=== PATIENT | female | born 1985 | race African-American/Black ===

== ENCOUNTER 2021-07-13 21:02 | Emergency (ER) | payer OTHER ==
[~2021-07-13] VITALS: Ht 154.9 cm; Wt 90.7 kg
[2021-07-13] MEDS ORDERED: HTN (21:27)
[2021-07-13] MEDS ORDERED: HTN MED (21:27)
[2021-07-13 22:26] LABS: ABSOLUTE BASOPHILS 0.1 thou/uL (0.0-0.2); ABSOLUTE EOSINOPHILS 0.1 thou/uL (0.0-0.7); ABSOLUTE LYMPHOCYTES 2.4 thou/uL (0.8-5.3); ABSOLUTE MONOCYTES 0.7 thou/uL (0.0-1.2); ABSOLUTE NEUTROPHILS 4.7 thou/uL (1.6-8.1); BASOPHILS 0.7 %; HEMOGLOBIN 11.7 gm/dL (12.0-15.0); LYMPHOCYTES 30.2 %; MCH 23.2 pg (26.0-34.0); MCHC 31.6 g/dL (28.0-37.0); MCV 73.3 fL (80.0-100.0); MONOCYTES 9.2 %; MPV 8.1 fl. (7.2-11.1); NUCLEATED RBCS 0 /100WBC; PLATELET COUNT* 340 thou/uL (150-400); POLYS 58.9 %; RBC 5.05 mil/uL (4.20-5.00); RDW-CV 17.1 % (10.5-14.5); WBC 8.1 thou/uL (4.0-11.0)
[2021-07-13] MEDS ORDERED: ZESTRIL20 MG PO (22:39)
[2021-07-13 22:56] LABS: CALCIUM 8.8 mg/dL (8.5-10.1); CREATININE 0.9 mg/dL (0.6-1.3); POTASSIUM 3.4 mmol/L (3.5-5.1)
[2021-07-13 23:01] LABS: ALBUMIN 3.5 g/dL (3.4-5.0); TOTAL BILIRUBIN 0.2 mg/dL (<0.1-1.0); TOTAL PROTEIN 7.3 g/dL (6.4-8.2)
[2021-07-13] MEDS ORDERED: ZOFRAN ODT4 MG PO (23:18)
[2021-07-13] MEDS ORDERED: CARAFATE1 GM PO (23:26)
[2021-07-13 23:36] VITALS: BP 160/101
--- NOTE | 2021-07-14 11:28 | EKG ---
[place] [address] ELECTROCARDIOGRAM REPORT Name: MATEUSSHALATawnya HERR Room: [facility]#: [id number] Admission: 07/13/21 Attend Phys: Discharge: 07/13/21 Date of : 83 Date of Service: 07/13/212108 Report #: [id number] THIS REPORT FOR: //name// [facility] ED Test Date: 2021-07-13 Test Time: 21:09:36 Pat Name: JASE IGNACIO Department: Room: Gender: F Analysis Director: CT : 1985 Requested By: Denisse Sharp Order Number: [id number] MD: Reji White Measurements Intervals [place] Rate: 91 P: 12 IA: 149 QRS: -26 QRSD: 90 T: 38 QT: 365 QTc: 450 Interpretive Statements Sinus rhythm Borderline left axis deviation Abnormal R-wave progression, late transition No previous ECG available for comparison Electronically Signed On 07-14-2021 11:28:35 [employer] by Reji White [email or web address] <ELECTRONICALLY SIGNED> By: Reji White MD, FACCheri 07/14/21 1128 08 08 Reji White MD, [facility] /EPI
== END 2021-07-13 23:36 | disposition home or self-care (01) ==
LOC: M.ERS 21:02
PROVIDERS: Personal Emergency Response Attendant
DX: I16.0 Hypertensive urgency (principal); F41.9 Anxiety disorder, unspecified